=== PATIENT | female | born 1980 | race Caucasian/White ===

== ENCOUNTER 2019-09-16 06:22 | Inpatient (IN) | payer OTHER ==
[~2019-09-16] VITALS: Ht 165.1 cm; Wt 88.5 kg
[~2019-09-16 06:22] MED LIST: CETI5 PO; POTASSIUM; PROBIOTIC; VITAMIN B12; VITAMIN D350 MCG PO
[2019-09-16] MEDS ORDERED: Loratadine10 MG PO (06:41)
[2019-09-16] MEDS ORDERED: Allegra-D 12 H1 EACH PO (06:41)
[2019-09-16] MEDS ORDERED: POTASSIUM99 MG PO (06:44)
[2019-09-16] MEDS ORDERED: CYAN500 PO (06:45)
[2019-09-16] MEDS ORDERED: PROBIOTIC1 EAC2 PO (06:46)
--- NOTE | 2019-09-16 07:10 | NUR ---
Ambulatory in Day Surgery History, Chart, Medications and Allergies reviewed before start of procedure. Lungs clear T/O to Auscultation. Patient confirms NPO status and agrees with scheduled surgery. Pre-Op teaching done. Pt verbalizes understanding.
[2019-09-16] MEDS ORDERED: ROBITUSSIN100 MG/5 M PO (07:22)
[2019-09-16] MEDS ORDERED: [UNRECOGNIZED DRUG - OTHER] PO (07:23)
[2019-09-16] MEDS ORDERED: ALBU90OI INH (07:24)
--- NOTE | 2019-09-16 08:39 | NUR ---
09/16/19 0839 Rolando Nunes ATTEMPTED. CONVERTED TO OPEN APPROACH AT 0817
--- NOTE | 2019-09-16 11:03 | NUR ---
ARRIVED FROM PACU VIA BED, S/P JOSE, VSS, DROWSY, DENIES ANY NEED FOR PAIN MEDS AT THIS TIME, ICE CHIPS PROVIDED, ORIENTED TO ROOM AND CALL SYSTEM, CONT. TO MONITOR FOR ANY CHANGES.
--- NOTE | 2019-09-16 14:20 | NUR ---
PT MORE AWAKE, ENCOURAGED TO COUGH AND DEEP BREATHE, C/O 9/10 PAIN AFTER COUGHING, P[employer] WORKER FENTANYL STARTED ORDERED, CONT. TO MONITOR.
--- NOTE | 2019-09-16 17:54 | NUR ---
SUMMARY OOB TO CHAIR, TOLERATED FAIRLY WELL, USING MANAGER LAW FOR PAIN, DENIES ANY NAUSEA, TAKING SOME CLEAR AND FULL LIQUIDS, SCANT DRY REDDSH BROWN DRAINAGE NOTED ON PERIPAD WHEN PT GOT UP, MONTANO CATH INTACT, VSS, NO ACUTE CHANGES THIS SHIFT.
[2019-09-17 04:36] LABS: BASOPHILS ABSOLUTE AUTO 0.02 K/mm3 (0.00-0.23); BASOPHILS PERCENT AUTO 0 % (0-2); EOSINOPHILS PERCENT AUTO 1 % (0-6); Hematocrit 36.6 % (33.0-51.0); Hemoglobin 12.1 g/dL (11.5-16.0); IMMATURE GRAN ABSOLUTE AUTO 0.04 K/mm3 (0.00-0.10); IMMATURE GRAN PERCENT AUTO 0 % (0-1); LYMPHOCYTES ABSOLUTE AUTO 2.12 K/mm3 (0.84-5.20); LYMPHOCYTES PERCENT AUTO 21 % (21-46); MONOCYTES ABSOLUTE AUTO 1.18 K/mm3 (0.16-1.47); MONOCYTES PERCENT AUTO 12 % (4-13); Mean Corpuscular HGB 29.1 pg (26.0-34.0); Mean Corpuscular HGB Conc 33.1 g/dL (31.5-36.5); Mean Corpuscular Volume 88 fL (80-100); Mean Platelet Volume 9.8 fL (9.1-12.4); NEUTROPHILS ABSOLUTE AUTO 6.48 K/mm3 (1.96-9.15); NEUTROPHILS PERCENT AUTO 65 % (41-73); Platelet Count 279 K/mm3 (150-400); RDW Coefficient Variation 13.3 % (11.7-14.2); Red Blood Cell Count 4.16 M/mm3 (3.80-5.20); White Blood Cell Count 9.94 K/mm3 (4.00-11.30)
--- NOTE | 2019-09-17 05:02 | NUR ---
SHIFT SUMMARY POD 1 TOTAL OPEN HYSTER. [id number], VSS. PT PAIN MANAGED WITH NETWORK DIAGNOSTIC SUPPORT SPECIALIST AND TORODOL, SHE REPORTS A PAIN LEVEL OF 3 OR 4/10 PAIN INCREASES WITH DEEP BREATHING OR COUGHING, PT EDUCATED ON SPLINTING ABDOMEN AND IMPORTANCE OF DEEP BREATHING. SCANT DRAINAGE ON ABDOMINAL DRESSING AND SCANT AMOUTN DISCHARGE ON MEIR PAD. MONTANO PATENT AND DRAINING, PLAN IS TO REMOVE BEFORE END OF SHIFT. PT IS ACCEPTING OF THIS. TOLERATING SMALL AMOUNT OF PO LIQUIDS. PLAN TO MOVE TO ORAL PAIN MEDS ONCE PT CAN TOLERATE MORE PO.
--- NOTE | 2019-09-17 08:49 | NUR ---
PT OOB TO BATHROOM TO VOID SOME DIZZINESS SAT ON THE EDGE OF THE BED FIRST
--- NOTE | 2019-09-17 10:36 | NUR ---
zofran given for nausea pt stated she is still having nausea when she turns her head will wait ten min then will get up to try and void again
--- NOTE | 2019-09-17 11:54 | NUR ---
pt unable to void attempted twice siddiqui placed difficult placement
--- NOTE | 2019-09-17 17:00 | NUR ---
PO PERCOCET AND MOTRIN GIVEN PT ENCOURAGED ALSO TO USE IS/TCDB STATED SHE HAS NOT BEEN COUGHING
--- NOTE | 2019-09-18 05:01 | NUR ---
PATIENT HAS SLEPT MOST OF THE NIGHT. RECEIVED PAIN MEDICATION X1 FOR PAIN WITH REPOSITIONING. COUGHING AND IS USAGE ON COMMAND AND INDEPENDENTLY. MONTANO CATH DRAINING YELLOW URINE. SLIGHT OLD BLOOD ON ABD DRESSINGS. NO EVIDENCE OF NEW BLEEDING OR INFECTION. NO ACUTE CHANGES.
--- NOTE | 2019-09-18 10:01 | NUR ---
MONTANO DISCONTINUED AT APROX 0930.
[2019-09-18] MEDS ORDERED: Percocet 5-3251 EACH PO (11:31)
[2019-09-18] MEDS ORDERED: IBUP800 PO (11:32)
--- NOTE | 2019-09-18 12:18 | NUR ---
DISCHARGE PT DISCHARGED HOME FROM UNIT AT APROX 1200. PT GIVEN WRITTEN AND VERBAL DISCHARGE INSTRUCTIONS AND VERBALIZED UNDERSTANDING OF THESE INSTRUCTIONS. IV REMOVED, PT TOLERATED WELL.
== END 2019-09-18 12:00 | disposition home or self-care (01) | DRG 743 ==
LOC: ORSCMMR 06:22 → ORD 09:30 → ORSCMMR 09:30 → SURS 09:40
PROVIDERS: ADMIT Obstetrics & Gynecology
PROC: 0UT70ZZ Resection of Bilateral Fallopian Tubes, Open Approach (ICD-10-PCS; 2019-09-16)
PROC: 0UT90ZL Resection of Uterus, Supracervical, Open Approach (ICD-10-PCS; principal; 2019-09-16 07:30)
DX: D25.9 Leiomyoma of uterus, unspecified (principal)
CPT/HCPCS: 36415; 85025; A9270; J0171; J0330; J0690; J1100; J1170; J1885; J2250; J2270; J2405; J2704; J3010; J7120

== ENCOUNTER → 2020-10-31 | Outpatient (CLI) | payer OTHER ==
[~2020-10-31] MED LIST changes: +ALBU90OI INH; +Allegra-D 12 H1 EACH PO; +CYAN500 PO; +IBUP800 PO; +Loratadine10 MG PO; +POTASSIUM99 MG PO; +PROBIOTIC1 EAC2 PO; +Percocet 5-3251 EACH PO; +ROBITUSSIN100 MG/5 M PO; +[UNRECOGNIZED DRUG - OTHER] PO
== END | disposition home or self-care (01) ==
LOC: LAB 15:53 → LAB SHORT 15:53
DX: R30.0 Dysuria (principal)
CPT/HCPCS: 87086

== ENCOUNTER 2021-06-01 11:33 | Day surgery (SDC) | payer OTHER ==
[~2021-06-01] VITALS: Ht 165.1 cm; Wt 94.2 kg
== END 2021-06-01 15:00 | disposition home or self-care (01) ==
LOC: ORSCSDS 11:33
PROVIDERS: Podiatrist Foot & Ankle Surgery
PROC: 0JNR0ZZ Release Left Foot Subcutaneous Tissue and Fascia, Open Approach (ICD-10-PCS; principal; 2021-06-01 12:45)
DX: M72.2 Plantar fascial fibromatosis (principal); J45.909 Unspecified asthma, uncomplicated; Z79.899 Other long term (current) drug therapy
CPT/HCPCS: J0171; J0690; J1885; J2250; J2704; J2765; J3010